=== PATIENT | male | born 1960 | race Caucasian/White ===

== ENCOUNTER 2024-05-27 01:27 | Day surgery (SDC) | payer BC, SELFPAY ==
[2024-05-15 12:57] VITALS: BMI 29.4
[2024-05-27 08:14] VITALS: BP 143/69; PULSE 57; RESP 18; TEMP 36.1; O2SAT 97
[2024-05-27] MEDS: LACTATED RINGERS 1,000 ML 150 ML IV CONT (08:22)
--- NOTE | 2024-05-27 08:44 | PM.HPGS ---
History of Present Illness History of Present Illness Consent: Risks, benefits, and alternatives have been discussed and questions answered. Patient agrees to proceed with procedure. Chief complaint: Neoplasm screening Narrative: Royer Marin Jr. is a 63 year old male here for screening colonoscopy, last one 2013 Review of Systems Review of Systems: All systems reviewed & are unremarkable except as noted in HPI and below PMFSH Past Medical History Medical History (Updated 05/27/24 @ 08:47 by Daniel Lin MD) Encounter for screening colonoscopy Hyperlipidemia Social History Social History Smoking status: Never smoker Substance use: never Substance use type: does not use Living arrangements: with family Spiritual care concerns: No Meds Home Medications and Allergies Home Medications Medication Instructions Recorded Confirmed Type acyclovir 400 mg tablet 400 mg PO DAILY 05/15/24 05/27/24 History rosuvastatin 20 mg tablet 20 mg PO DAILY 05/15/24 05/27/24 History tadalafil 10 mg tablet 10 mg PO NEEDED PRN Sexual 05/15/24 05/27/24 History Activity Allergies Allergy/AdvReac Type Severity Reaction Status Date / Time No Known Allergies Allergy Verified 05/27/24 08:13 Vital Signs Vital Signs - 24 hr 05/27/24 08:14 Temperature 97 F L Pulse Rate 57 L Respiratory Rate 18 Blood Pressure 143/69 H Pulse Oximetry 97 Oxygen Delivery Room Air Exam Const: General: comfortable and no acute distress HENMT: Face/Nose/Sinus: Normal nares present Eyes: General: appearance normal, both eyes and all related structures Neck: Neck: no JVD Resp: Auscultation: clear to auscultation bilaterally Cardio: Rate: regular rate Rhythm: regular rhythm GI: Inspection: non-distended GI Palp: Yes Soft to palpation Skin: General skin exam: normal color Neuro: General: gait normal Speech: normal speech Extrem: General: normal to inspection Psych: Mental Status: mental status grossly normal Assessment and Plan Assessment and plan (1) Encounter for screening colonoscopy: Code(s): Z12.11 - Encounter for screening for malignant neoplasm of colon Status: Acute Assessment and Plan: colonoscopy
--- NOTE | 2024-05-27 08:51 | P.PNAN_ITS ---
Anes - Initial Pre Proc Eval Procedure: Operation Date: 05/27/24 09:30 Proposed Procedures p Screening Colonoscopy - Daniel Lin MD Date/Time: 05/27/24 08:51 Surgeon: Daniel Lin MD Pre Op Diagnosis: Neoplasm screening Patient Data Age: 63 Gender: M Height: 1.78 m Weight: 93.7 kg Last Vital Signs Temp 36.1 C L 05/27/24 08:14 Pulse 57 L 05/27/24 08:14 Resp 18 05/27/24 08:14 BP 143/69 H 05/27/24 08:14 Pulse Ox 97 05/27/24 08:14 O2 Del Method Room Air 05/27/24 08:14 Allergies Allergy/AdvReac Type Severity Reaction Status Date / Time No Known Allergies Allergy Verified 05/27/24 08:13 Home Medications Medication Instructions Recorded Confirmed Type acyclovir 400 mg tablet 400 mg PO DAILY 05/15/24 05/27/24 History rosuvastatin 20 mg tablet 20 mg PO DAILY 05/15/24 05/27/24 History tadalafil 10 mg tablet 10 mg PO NEEDED PRN Sexual 05/15/24 05/27/24 History Activity Patient hx anesthesia problems: none Family hx anesthesia problems: none Results Review: All pre-operative results and documents have been reviewed as part of the pre- operative evaluation. [facility] Past Medical History Medical History Encounter for screening colonoscopy Hyperlipidemia Social History Social History Smoking status: Never smoker Substance use: never Substance use type: does not use Living arrangements: with family Spiritual care concerns: No Anes - Eval Final PreProcedure Day of Procedure 05/27/24 08:51 Patient weight: overweight Heart: regular rate and rhythm Lungs: clear to auscultation Airway: Mallampati scale class II Neurological: alert and oriented Last oral intake: >/= 8 hours ASA classification: II Emergent: no Anesthetic plan: proceed Anesthesia type and monitoring: general GIVS Results Review: All pre-operative results and documents have been reviewed as part of the pre- operative evaluation. Informed Consent: The patient's anesthetic plan and its attendant risks and benefits were discussed with the patient/family/POA. Questions were solicited and answers provided to the satisfaction of the patient/family/POA.
[2024-05-27 09:07] VITALS: BP 96/61; PULSE 57; RESP 18; O2SAT 97
[2024-05-27 09:17] VITALS: BP 113/78; PULSE 52; RESP 20; O2SAT 100
[2024-05-27 09:27] VITALS: BP 125/78; PULSE 51; RESP 19; O2SAT 98
== END 2024-05-27 09:35 | disposition home or self-care (01) ==
PROVIDERS: PCP Family Medicine; Referring Provider Internal Medicine Gastroenterology; Visit Provider Internal Medicine Gastroenterology
PROC: 0DJD8ZZ Inspection of Lower Intestinal Tract, Via Natural or Artificial Opening Endoscopic (ICD-10-PCS; CPT 45378; principal; 2024-05-27 09:30)
DX: Z12.11 Encounter for screening for malignant neoplasm of colon (principal); D12.3 Benign neoplasm of transverse colon; K64.8 Other hemorrhoids; E78.5 Hyperlipidemia, unspecified
CPT/HCPCS: 45385; 88305; J2704; J7120